=== PATIENT | female | born 1990 | race Caucasian/White ===

== ENCOUNTER 2018-05-21 07:39 | Inpatient (IN) ==
[2018-05-21] MEDS ORDERED: LACTATED RINGER'S 1,000 ML IV PRN (09:40)
[2018-05-21] MEDS ORDERED: OXYTOCIN 30 UNITS/500 ML BAG IV PRN (09:40)
[2018-05-21] MEDS ORDERED: miSOPROStol 50 MCG TAB PO ONE (09:40)
--- NOTE | 2018-05-21 10:00 | Labor Progress Brief Note ---
Date of Service May 21, 2018 Met pt and Family Reviewed PNC H&P done Induction for prolonged gestation Bedside sono :VT FHR; CAT1 Ctx ; Minimal VE; 1-2/50/post/mid/soft Cytotec #1 ordered Physical Exam Vital Signs (Past 24 Hours): Last Vital Signs Temp 36.7 C 05/21/18 07:50 Pulse 81 05/21/18 07:52 Resp 20 05/21/18 07:50 BP 128/76 05/21/18 07:52
[2018-05-21 10:10] LABS: Hematocrit (blood only) 37.2 % (37-47); Hemoglobin 12.6 g/dL (12.0-16.0); Mean Corpuscular Volume 95.9 fL (80-100); Mean Platelet Volume 9.8 fL (7.4-10.4); Platelet Count 167 K/uL (130-400); RDW Coefficient of Variation 13.5 % (11.5-14.5); RDW Standard Deviation 46.4 fL (36.4-46.3); Red Blood Count 3.88 M/uL (4.2-5.4); White Blood Count 9.69 K/uL (4.8-10.8)
--- NOTE | 2018-05-21 10:21 | History and Physical Report ---
DATE OF ADMISSION: 05/21/2018 HISTORY OF PRESENT ILLNESS: This is a 28-year-old ____, P0, due date 05/19/2018 making her 40 weeks and 1 day, presented to labor and delivery for induction of labor for prolonged gestation. The patient's has been unremarkable. LABORATORIES: Blood type is A positive, antibody negative, rubella immune. RPR was positive; however, FTA-antibody was nonreactive. GBS is negative. HIV is negative. PAST MEDICAL HISTORY: None. PAST SURGICAL HISTORY: History of dental surgery as well as foot surgery. SOCIAL HISTORY: The patient denies tobacco, drug or alcohol use. FAMILY HISTORY: Noncontributory. 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 PHYSICAL EXAMINATION: GENERAL: Well-developed, well-nourished white female in no acute distress. HEART: S1, S2, regular rhythm and rate. LUNGS: Clear to auscultation bilaterally. ABDOMEN: Gravid. Bedside ultrasound shows cephalic presentation. EXTREMITIES: No cyanosis, clubbing or edema. PELVIC: 1-2, 50% and -3. ASSESSMENT AND PLAN: A 28-year-old G1, P0 at 41, here for induction for prolonged gestation. lab and course as discussed above is unremarkable. The patient is admitted. We will start induction process.
[2018-05-21 10:22] LABS: Mean Corpuscular Hgb Conc 33.9 g/dL (32-36)
[2018-05-21] MEDS ORDERED: miSOPROStol 50 MCG TAB PO SCH ×2 (14:45→15:00)
[2018-05-21] MEDS ORDERED: DINOPROSTONE 10 MG INSERT PV ONE (21:30)
--- NOTE | 2018-05-21 22:20 | Labor Progress Brief Note ---
Date of Service May 21, 2018 Induction Day #1 Pt doing well Cytotec x2 given FHR; CAt1 Ctx Minimal VE: /-3 Cervidil #1 placed Physical Exam Vital Signs (Past 24 Hours): Last Vital Signs Temp 36.6 C 05/21/18 19:15 Pulse 82 05/21/18 21:25 Resp 20 05/21/18 19:15 BP 125/83 05/21/18 21:25
[2018-05-22] MEDS ORDERED: BUTORPHANOL TARTRATE 2 MG/ML VIAL IV PRN (02:24)
[2018-05-22] MEDS ORDERED: BUTORPHANOL TARTRATE 2 MG/ML VIAL ONE (02:26)
[2018-05-22] MEDS: LACTATED RINGER'S 1,000 ML IV SCH ×3 (02:33→11:05)
[2018-05-22] MEDS ORDERED: BUPIVACAINE 0.25% 30 ML VIAL ONE (07:29)
[2018-05-22] MEDS ORDERED: ePHEDrine sulfate 50 MG/ML AMP ONE (07:29)
[2018-05-22] MEDS ORDERED: fentaNYL citrate 100 MCG/2 ML VIAL ONE (07:29)
[2018-05-22] MEDS ORDERED: fentaNYL 2MCG/ML ROPIV 1.25MG/ML 100 ML BAG EPI ONE (07:30)
[2018-05-22] MEDS ORDERED: OXYTOCIN 30 UNITS/500 ML BAG IV PRN ×2 (07:32→14:12)
[2018-05-22] MEDS ORDERED: LACTATED RINGER'S 1,000 ML IV PRN ×2 (07:32→08:42)
--- NOTE | 2018-05-22 07:32 | Obstetrical Progress Note ---
Date of Service May 22, 2018 Subjective Patient is seen and examined. She is a 28 yo at 40.3 wks who was admitted by Dr. Raymundo yesterday for IOL She is known to me from office Her has been uncomplicated Denies medical problems No h/o STD's, no GC/ Chlamydia/ HSV GBS negative She had Cervidil at 9 pm, feels mild ctxs, pain is 4/10 No LOF/VB +FM FHR had been categ I, with moderate variability, accels+ Venus irregular ctxs q 2-4 min VE; 5/ 60%/ -2, Cervidil is removed, AROM'ed clear fluid Patient desires epidural for pain Plan to augment contractions with Oxytocin All questions were answered Physical Exam Vital Signs (Past 24 Hours): Last Vital Signs Temp 37.3 C 05/22/18 07:04 Pulse 78 05/22/18 07:07 Resp 18 05/22/18 07:04 BP 128/80 05/22/18 07:07
--- NOTE | 2018-05-22 08:10 | Anesthesiology Consultation ---
Date of Service May 22, 2018 Assessment & Plan Chart Review Chart Review: Acceptable Risk for Labor Epidural Consults Requested none History Height/Weight Height: 5 ft 8 in Weight: 82.554 kg Allergies Allergy/AdvReac Type Severity Reaction Status Date / Time No Known Allergies Allergy Unverified 05/21/18 08:42 Medications Home Medications Medication Instructions Recorded Confirmed Last Taken vit-iron fum-folic ac 1 tab PO DAILY 05/21/18 05/21/18 05/20/18 19:00 [ Vitamin] Active Medications Generic Name Dose Route Start Last Admin Trade Name Freq PRN Reason Stop Dose Admin Lactated Ringer's 1,000 mls @ 999 mls/hr 05/21/18 09:40 05/22/18 07:30 Lr IV 06/20/18 09:39 999 mls/hr .Q1H1M PRN Administration (Pre-Anesthesia) Lactated Ringer's 1,000 mls @ 125 mls/hr 05/21/18 09:45 05/22/18 03:45 Lr IV 05/23/18 09:44 0 mls/hr .Q8H LEANNE Infusion Past Medical History Medical History [place] teeth removed Past Surgical History Surgical History History of toe surgery Social History Smoking Status: Never smoker Do You Dip or Chew Tobacco: No Hx Alcohol Use: No Hx Substance Use: No Physical Exam Vital Signs Last Vital Signs Temp 37.3 C 05/22/18 07:04 Pulse 78 05/22/18 07:07 Resp 18 05/22/18 07:04 BP 128/80 05/22/18 07:07 Testing Laboratory Results 05/21/18 09:54
[2018-05-22] MEDS ORDERED: NALBUPHINE HCL INJ 10 MG/ML AMP IV PRN (08:42)
[2018-05-22] MEDS ORDERED: DiphenhydrAMINE HCL 50 MG/ML VIAL IV PRN (08:42)
[2018-05-22] MEDS ORDERED: ePHEDrine sulfate 50 MG/ML AMP IV PRN (08:42)
[2018-05-22] MEDS ORDERED: fentaNYL 2MCG/ML ROPIV 1.25MG/ML 100 ML BAG EPI PRN (08:42)
[2018-05-22] MEDS ORDERED: NALOXONE HCL 1 MG in SODIUM CHLORIDE 0.9% 1000ML 1,000 ML IV PRN (08:42)
[2018-05-22] MEDS ORDERED: NALOXONE HCL 0.4 MG/1 ML VIAL/CARP IV PRN (08:42)
[2018-05-22] MEDS ORDERED: ONDANSETRON INJ 2 MG/ML 2 ML VIAL ONE (10:30)
[2018-05-22] MEDS ORDERED: SUPERCREAM 0.870% 15 GM JAR EXT PRN (14:12)
[2018-05-22] MEDS ORDERED: DIPHTHERIA/TETANUS/PERTUSSIS 0.5 ML SYR/VIAL IM ONE (14:12)
[2018-05-22] MEDS ORDERED: HYDROCORTISONE ACETATE 25 MG SUPP PR PRN (14:12)
[2018-05-22] MEDS ORDERED: ACETAMINOPHEN 325 MG TAB PO PRN (14:12)
[2018-05-22] MEDS ORDERED: BISACODYL 10 MG SUPP PR PRN (14:12)
[2018-05-22] MEDS ORDERED: LACTATED RINGER'S 1,000 ML IV SCH (14:15)
--- NOTE | 2018-05-22 15:46 | Anesthesia Procedure Note ---
Date of Service May 22, 2018 Anesthesia Post Epidural Note Vital Signs Vital Signs: Temp Pulse Resp BP Pulse Ox 37 C 97 H 18 126/73 99 05/22/18 11:10 05/22/18 15:16 05/22/18 12:15 05/22/18 15:16 05/22/18 13:32 Pain Intensity Bilateral Lower Abdomen: Pain Intensity: 0 Notes Mental Status: alert / awake / arousable and participated in evaluation Nausea / Vomiting: adequately controlled Pain: adequately controlled Airway Patency, RR, SpO2: stable & adequate BP & HR: stable & adequate Hydration State: stable & adequate Neuraxial Anesthesia: was administered and sensory block is resolving Anesthetic Complications: no major complications apparent and Pt Satisfied with anesthetic care Epidural: Removed without complications and With tip intact
[2018-05-22] MEDS ORDERED: METHYLERGONOVINE MALEATE 0.2 MG/ML AMP IM STA (16:10)
--- NOTE | 2018-05-22 16:12 | Obstetrical Progress Note ---
Date of Service May 22, 2018 Subjective Patient is reevaluated She is ready to get up and void VSS Afebrile VE: one sponge was removed, posterior vagina where the repair was is still oosing minimal blood, no active bleeding Plan Methergine IM Campuzano catheter to drain bladder and apply more Gemma powder to vagina and pack again with 4X4s till tomorrow morning SCD's while in bed Physical Exam Vital Signs (Past 24 Hours): Last Vital Signs Temp 37 C 05/22/18 11:10 Pulse 97 H 05/22/18 15:16 Resp 18 05/22/18 12:15 BP 126/73 05/22/18 15:16 Pulse Ox 99 05/22/18 13:32
--- NOTE | 2018-05-22 16:37 | Obstetrical Progress Note ---
Date of Service May 22, 2018 Subjective Patient has scott catheter and received Methergine IM Gemma powder is applied to repair and one 4x4 spinge was placed over for pressure, to be removed in am or if she will need BM Continue to monitor Physical Exam Vital Signs (Past 24 Hours): Last Vital Signs Temp 37 C 05/22/18 11:10 Pulse 81 05/22/18 16:31 Resp 18 05/22/18 12:15 BP 127/78 05/22/18 16:31 Pulse Ox 99 05/22/18 13:32
[2018-05-22] MEDS: IBUPROFEN 600 MG TAB PO PRN ×2 (17:22→21:27)
[2018-05-22] MEDS: DOCUSATE SODIUM 100 MG CAP PO SCH (20:06)
[2018-05-22] MEDS: BENZOCAINE 20% AER SPR 82.5 GM CAN EXT PRN (20:06)
--- NOTE | 2018-05-23 01:29 | Delivery Summary ---
DATE OF OPERATION: 05/22/2018 TIME OF DELIVERY OF BABY: 1303 hours. TIME OF DELIVERY OF PLACENTA: 1323 hours. DETAILS OF DELIVERY: The patient was found to be fully dilated and desired to push. She pushed for about half an hour and delivered the head without difficulty. Shoulders came right after the head without any traction. There was a nuchal cord around the neck x1 which was reduced and baby was handed off to the mother where mouth and nose were suctioned. Cord was clamped x2 and cut at 1-minute delay and cord blood was obtained. The vagina and perineum were checked for lacerations. There was a second-degree laceration on the perineum close to the right lower vaginal wall and there was another second-degree on the left lower vagina extending into the left labia, so those were repaired with 2-0 Vicryl in a running locked fashion. The placenta was found to be in the vagina and delivered spontaneous as intact and complete. Uterus was explored, found to be empty. Lower segment was cleared of all clots and debris. Fundus was firm. EBL was 200 mL and the vagina and perineum were checked for lacerations again. There were first-degree lacerations on the posterior vaginal wall which were also repaired with 3-0 Vicryl and then there was more oozing around the repairs. So more sutures were placed, but it was still oozing and the vagina was fragile tearing off with the sutures. Decision was made to apply Gemma powder and put vaginal packing. I applied Gemma powder and bleeding stopped. Sponge was placed over the repair to provide compression for the next few hours. Mom and baby tolerated the procedure well. Sponge, lap, needle count was correct x3. Baby was a viable female , Apgars 8/9. Weight was 3370 grams. No complications happened and I was present during the whole procedure. I attest to the content of the Intraoperative Record and any orders documented therein. Any exceptions are noted below. SHEREEN
[2018-05-23 06:13] LABS: Hematocrit (blood only) 34.8 % (37-47); Hemoglobin 11.8 g/dL (12.0-16.0); Mean Corpuscular Hgb Conc 33.9 g/dL (32-36); Mean Corpuscular Volume 96.7 fL (80-100); Mean Platelet Volume 10.1 fL (7.4-10.4); Platelet Count 155 K/uL (130-400); RDW Coefficient of Variation 13.5 % (11.5-14.5); RDW Standard Deviation 46.8 fL (36.4-46.3); White Blood Count 12.59 K/uL (4.8-10.8)
[2018-05-23] MEDS: IBUPROFEN 600 MG TAB PO PRN ×3 (06:13→17:11)
--- NOTE | 2018-05-23 06:42 | Obstetrical Progress Note ---
Date of Service May 23, 2018 Subjective Patient is seen and examined. She feels well, no complaints. Ambulating without dizziness Scott and packing are in. Tolerating regular diet with out N&V Bleeding is minimal No fever/ chills/ CP/ SOB/ N&V/ Leg pain Breast feeding without problems Vital Signs Temp Pulse Resp BP Pulse Ox 05/23/18 03:55 36.6 C 61 16 122/81 98 05/22/18 23:30 36.6 C 64 16 119/72 98 05/22/18 20:10 36.5 C 61 16 129/81 98 05/23/18 Range/Units 05:52 WBC 12.59 H (4.8-10.8) K/uL RBC 3.60 L (4.2-5.4) M/uL Hgb 11.8 L (12.0-16.0) g/dL Hct 34.8 L (37-47) % MCV 96.7 (80-100) fL MCH 32.8 (25-34) pg MCHC 33.9 (32-36) g/dL RDW Std Deviation 46.8 H (36.4-46.3) fL RDW Coeff of Sahra 13.5 (11.5-14.5) % Plt Count 155 (130-400) K/uL MPV 10.1 (7.4-10.4) fL PE: General: Alert, orientedx3, NAD Abd: soft, NT, fundus firm, below Umbilicus Perineum intact, Lochia rubra minimal Vaginal pack ( one 4x4 sponge) is removed. Normal repair Will d/c scott now Ext; NT, no edema AP: 28 yo s/p , ppd# 1 VSS Afebrile doing well Vag packing removed'D/C scott Continue routine care All questions were answered D/C home in am Physical Exam Vital Signs (Past 24 Hours): Last Vital Signs Temp 36.6 C 05/23/18 03:55 Pulse 61 05/23/18 03:55 Resp 16 05/23/18 03:55 BP 122/81 05/23/18 03:55 Pulse Ox 98 05/23/18 03:55
[2018-05-23] MEDS: DOCUSATE SODIUM 100 MG CAP PO SCH ×2 (09:40→21:13)
[2018-05-23] MEDS: FERROUS SULFATE 325 MG TAB PO SCH (09:40)
[2018-05-23] MEDS: METHYLERGONOVINE MALEATE 0.2 MG TAB PO SCH ×4 (09:40→21:14)
[2018-05-23] MEDS: PRENATAL VITAMIN 1 TAB PO SCH (09:40)
[2018-05-23] MEDS: OXYCODONE/ACETAMINOPHEN 5mg/325mg TAB PO PRN ×2 (18:58→23:04)
[2018-05-23] MEDS ORDERED: BISACODYL 5 MG TABEC PO SCH (20:00)
[2018-05-24 06:14] LABS: Hemoglobin 11.6 g/dL (12.0-16.0)
[2018-05-24] MEDS: IBUPROFEN 600 MG TAB PO PRN (08:18)
[2018-05-24] MEDS: DOCUSATE SODIUM 100 MG CAP PO SCH (08:19)
[2018-05-24] MEDS: METHYLERGONOVINE MALEATE 0.2 MG TAB PO SCH (08:19)
[2018-05-24] MEDS: FERROUS SULFATE 325 MG TAB PO SCH (08:19)
[2018-05-24] MEDS: PRENATAL VITAMIN 1 TAB PO SCH (08:19)
[2018-05-24] MEDS: BENZOCAINE 20% AER SPR 82.5 GM CAN EXT PRN (08:53)
--- NOTE | 2018-05-24 12:01 | Obstetrical Progress Note ---
Date of Service May 24, 2018 Physical Exam Vital Signs (Past 24 Hours): Last Vital Signs Temp 36.9 C 05/24/18 07:50 Pulse 78 05/24/18 07:50 Resp 18 05/24/18 07:50 BP 117/76 05/24/18 07:50 Pulse Ox 99 05/24/18 07:50 Physical Exam: abdomen soft and non tender vaginal bleeding scant to moderate no calf tenderness ambulating well
[2018-05-24] MEDS: OXYCODONE/ACETAMINOPHEN 5mg/325mg TAB PO PRN (12:34)
== END 2018-05-24 12:50 | disposition home or self-care (01) | DRG 807 ==
LOC: 4S1 07:39 → 4S2 05-22 17:38